=== PATIENT | female | born 1960 ===

== ENCOUNTER 2018-01-13 07:20 | Emergency (ER) | payer OTHER ==
[2018-01-13 07:48] VITALS: TEMP 98.1; BMI 27.4
--- NOTE | 2018-01-13 07:56 | ED PDOC ---
Arrival/HPI - General Chief Complaint: ENT Problem Time Seen by Provider: 01/13/18 07:29 Historian: Patient - History of Present Illness Narrative History of Present Illness (Text): 01/13/18 07:53 Pt p/w + ~ 4 days onset of left facial/ear pain, atrumatic; pt states chewing/ movement/touching the region causes more pain; pt states pain is ~ 10/10 pain; pt had seen her arthritis doctor 3 days ago and states she might have an inflammation; pt did not take any of her medications that she takes for arthritis pain to ease current left face/jaw pain; pt states no vision changes, no neck pain, no fever/chills/sweats, no ear discharge, no hearing changes, no drooling/voice changes, no cp/sob/palpitations, no abd pain, no n/v, no numbness /tingling, no urinary/bowel changes, no fall/trauma/sick contact, no travel; pt denied any rashes; pt denied slurr speech; pt denied any rashes; pt denied bleeding; pt is here for further eval; pt's without other complaints. pt is right hand dominate Time/Duration: < week (4 days) Symptom Onset: Sudden, Gradual Symptom Course: Worsening Severity Level: 10, Severe Activities at Onset: Rest Context: Home Past Medical History - Provider Review Nursing Documentation Reviewed: Yes - Travel History Have you recently traveled outside [place] w/in the past 3 mons?: No - Past History Past History: No Previous - Infectious Disease Hx of Infectious Diseases: None - Reproductive Menopause: Yes - Cardiac Hx Cardiac Disorders: No - Pulmonary Hx Respiratory Disorders: No - Neurological Hx Neurological Disorder: No - HEENT Hx HEENT Disorder: No - Renal Hx Renal Disorder: No - Endocrine/Metabolic Hx Endocrine Disorders: No - Hematological/Oncological Hx Blood Disorders: No - Integumentary Hx Dermatological Disorder: No - Musculoskeletal/Rheumatological Hx Musculoskeletal Disorders: Yes Hx Arthritis: Yes - Gastrointestinal Hx Gastrointestinal Disorders: No - Genitourinary/Gynecological Hx Genitourinary Disorders: No - Psychiatric Hx Anxiety: Yes Hx Substance Use: No - Anesthesia Hx Anesthesia: No Hx Anesthesia Reactions: No Hx Malignant Hyperthermia: No Family/Social History - Physician Review Nursing Documentation Reviewed: Yes Family/Social History: No Known Family HX Smoking Status: Never Smoked Hx Alcohol Use: No Hx Substance Use: No Hx Substance Use Treatment: No Allergies/Home Meds Allergies/Adverse Reactions: Allergies No Known Allergies Allergy (Verified 01/13/18 07:41) Review of Systems - Review of Systems Constitutional: Normal Eyes: Normal ENT: Other (left facial pain) Respiratory: Normal Cardiovascular: Normal Gastrointestinal: Normal Genitourinary Female: Normal Musculoskeletal: Other (left facial pain) Skin: Normal Neurological: Normal Endocrine: Normal Hemo/Lymphatic: Normal Psychiatric: Normal Physical Exam Vital Signs Reviewed: Yes Vital Signs Temp Pulse Resp BP Pulse Ox 01/13/18 08:15 78 16 150/88 99 01/13/18 07:46 98.1 F 83 18 162/89 H 100 01/13/18 07:38 98.3 F 98 H 18 151/80 H 99 Temperature: Afebrile Blood Pressure: Hypertensive Pulse: Regular Respiratory Rate: Normal Appearance: Positive for: Well-Appearing, Non-Toxic, Uncomfortable, Other (mild distress due to pain, uncomfortable, cooperative, follows command with ease, alert/awake, GCS = 15, oriented x 3) Pain Distress: Mild Mental Status: Positive for: Alert and Oriented X 3 - Systems Exam Head: Present: Atraumatic, Normocephalic, Other (+ left TMJ region point tenderness, NO crepitus noted, decr ability to widely open mouth; no trismus noted, no drooling/stridor, no dysphonia noted) Pupils: Present: PERRL, Other (visual field intact b/l, no nystagmus, no photophobia) Extroacular Muscles: Present: EOMI Conjunctiva: Present: Normal Ears: Present: Normal Mouth: Present: Moist Mucous Membranes, Normal Teeth Pharnyx: Present: Normal Nose (External): Present: Atraumatic Nose (Internal): Present: Normal Inspection Neck: Present: Normal Range of Motion, Trachea Midline, Other (decr ROM to right (mild left anterior neck region tightness), ). No: Meningeal Signs, MIDLINE TENDERNESS Respiratory/Chest: Present: Clear to Auscultation, Good Air Exchange. No: Respiratory Distress, Accessory Muscle Use Cardiovascular: Present: Regular Rate and Rhythm, Normal S1, S2. No: Murmurs Abdomen: Present: Normal Bowel Sounds, Other (well nourished female, no focal tenderness, no masses/rebound/guarding/rigidity; no sellers's sign, no mcburney' s point tenderness) Back: Present: Normal Inspection. No: CVA Tenderness, Midline Tenderness Upper Extremity: Present: Normal Inspection, Normal ROM, NORMAL PULSES, Neurovascularly Intact, Capillary Refill < 2s Lower Extremity: Present: Normal Inspection, Normal ROM, Neurovascularly Intact , Capillary Refill < 2 s Neurological: Present: GCS=15, CN II-XII Intact, Speech Normal Skin: Present: Warm, Normal Color, Other (cap refill < 1sec, no ulcerations, no petchiae) Psychiatric: Present: Alert, Oriented x 3 Medical Decision Making ED Course and Treatment: 01/13/18 0755 Impression: left face pain, atrumatic i have consider all the differential diagnosis regarding pt's chief medical complaints/clinical findings, including but are not limited to: left face pain A/P: left face pain - observe - supportive care 01/13/18 17:22 pt is made aware of her medical results pt is encouraged outpt f/u pt will be discharged home Re-evaluation Time: 08:00 Reassessment Condition: Improving,but remains with symptoms - Medication Orders Current Medication Orders: Discontinued Medications Ketorolac Tromethamine (Toradol) 30 mg IM STAT STA Stop: 01/13/18 07:56 Last Admin: 01/13/18 08:09 Dose: 30 mg MAR Pain Assessment Document 01/13/18 08:09 SOUTH (Rec: 01/13/18 08:10 SOUTH [id number]) Pain Reassessment Is this a pain reassessment? No Sleep Is patient sleeping during reassessment? No Presence of Pain Presence of Pain Yes IM Administration Charges Document 01/13/18 08:09 SOUTH (Rec: 01/13/18 08:10 SOUTH [id number]) Injection Site MAR Injection Site Right Gluteus Medius Charges for Administration # of IM Administrations 1 NIHSS Stroke Scale 3 - Date/Time Evaluation Performed Date Performed: 01/13/18 Time Performed: 07:45 When Was NIHSS Performed: Baseline - How Severe is the Stroke Level of Consciousness: 0=Alert LOC to Questions: 0=Both comments correct LOC to commands: 0=Obeys both correctly Best Gaze: 0=Normal Visual: 0=No visual loss Facial: 0=Normal Motor Arm - Left: 0=No drift Motor Arm - Right: 0=No drift Motor Leg - Left: 0=No drift Motor Leg - Right: 0=No drift Limb Ataxia: 0=Absent Sensory: 0=Normal Best Language: 0=No aphasia Dysarthia: 0=Normal articulation Extinction & Inattention (Neglect): 0=Normal, no object Score: 0 Disposition/Present on Arrival - Present on Arrival Any Indicators Present on Arrival: No History of DVT/PE: No History of Uncontrolled Diabetes: No Urinary Catheter: No History of Decub. Ulcer: No History Surgical Site Infection Following: None - Disposition Have Diagnosis and Disposition been Completed?: Yes Diagnosis: Facial pain, acute Disposition: HOME/ ROUTINE Disposition Time: 07:57 Patient Plan: Discharge Condition: STABLE Discharge Instructions (ExitCare): Temporomandibular Joint (TMJ) Disorders Print Language: ICELANDIC Additional Instructions: Make sure to see your doctor in 1-2 days DRINK PLENTY OF FLUIDS AVOID tough chewing foods ICE left face 15min/hr over the next 1-2 days take your medications as prescribed RETURN TO ED IF worse pain, cant breath, persistent vomiting, high fever >101- 102 for hours, altered behavior, slurr speech, cant see, arm/leg weakness/ numbness/tingling, unable to urinate, heavy/persistent bleeding, passing out, chest pain, or other medical emergencies Prescriptions: oxyCODONE/Acetaminophen [Percocet 5/325 mg Tab] 1 tab PO QID PRN #12 tab PRN Reason: Pain, Moderate (4-7) Referrals: Oneil Coronado MD [Primary Care Provider] - Follow up with primary Lauro Luque DO [Staff Provider] - Follow up with primary Forms: [employer] ([place])
[2018-01-13 08:32] VITALS: BP 150/88; PULSE 78; RESP 16; O2SAT 99
== END 2018-01-13 08:37 | disposition home or self-care (01) ==
LOC: ED 07:20
DX: R51 Headache (principal)
CPT/HCPCS: 96372; 99283; J1885